=== PATIENT | female | born 1980 | race Caucasian/White ===

== ENCOUNTER 2017-04-28 10:00 | Inpatient (IN) ==
[2017-04-28] MEDS ORDERED: Ondansetron 4 MG/2 ML VIAL IVP PRN (10:56)
[2017-04-28] MEDS ORDERED: Famotidine 20 MG/2 ML VIAL IVP PRN (10:56)
[2017-04-28] MEDS ORDERED: *HR* Nalbuphine 20 MG/ML AMPUL IVP PRN (10:56)
[2017-04-28] MEDS ORDERED: Naloxone 0.4 MG/ML INJ IVP PRN (10:56)
[2017-04-28] MEDS ORDERED: miSOPROStol 25 MCG TABLET VG PRN (10:59)
[2017-04-28] MEDS: Ringers Solution, Lactated 1,000 ML IVC SCH ×3 (11:38→18:57)
--- NOTE | 2017-04-28 11:46 | OB/GYN History & Physical ---
Date of Encounter: 04/28/17 Time of Encounter: 11:40 Assessment and Plan (1) and not yet delivered in third trimester Current visit: Yes Status: Acute (2) 39 weeks gestation of Current visit: Yes Status: Acute Patient will be induced with a Tay catheter and Cytotec plan is to anticipate vaginal delivery (3) Advanced maternal age during in third trimester Current visit: Yes Status: Acute (4) Diet controlled gestational diabetes mellitus in third trimester Current visit: Yes Status: Acute (5) Grand multipara in labor in third trimester Current visit: Yes Status: Acute History of Present Illness HPI: Ms. Ferreira is a 36 year old female 6 para 5 at 39 and one sevenths weeks who presented for induction of labor secondary to term with favorable cervix. Patient course was complicated with being diagnosed as an A1 gestational diabetic has seen maternal medicine for this and for her advanced maternal age and has been getting NSTs. Clinically which have all been reassuring. It is recommended when she hit 39 weeks' to be induced. Patient is having no contractions good movement and no leaking of fluid. She was Rh+ rubella positive GBS negative Past Med Surg Social Fam HX - Past Medical History Medical history: no medical history, other (Gestational diabetes) Psychiatric history: no psych history - Past Surgical History Surgical History: no surgical history, other ([place] teeth extraction) - Social History Smoking Status: Unknown if ever smoked Smokeless Tobacco Status: No Alcohol use: none Drug use: none Occupational status: employed Current living situation: Home - Independent Activity Level: Independent ambulation Recent Out of Country Travel Within the Last 8 Weeks: No Exposure or Possible Exposure to Illness During Travel: No - Additional Family History Additional family history: Family history noncontributory Obstetrical History - Pregnancies : 6 Para: 5 Term: 5 : 0 Ab's: 0 Livin Medications and Allergies Vit Calc,Iron,Folic 04/28/17 [History] 3 Allergy/AdvReac Type Severity Reaction Status Date / Time No Known Allergies Allergy Verified 04/28/17 10:47 Review of System OB All systems PM: reviewed and no additional remarkable complaints except as stated Exam - Constitutional Constitutional: well developed, well nourished, no acute distress, average body habitus - HEENT HEENT: EOMI, PERRL, Mucus Membranes Moist - Neck Neck exam: full ROM - Lungs Respiratory exam: CTAB - Cardiovascular Cardiovascular exam: RRR - Abdomen Abdomen: Present: gravid - Cervix Dilation: 1 Effacement: 70 Station: -3 (A Tay catheter inserted 30 mL balloon inflated, heart tones 140s has some decreased variability at this time no contraction seen ) Results All other labs normal. - VTE Reasons for not Prescribing Prophylaxis: Treatment not Indicated - Low risk for VTE
[2017-04-28 11:52] LABS: Basophils % 0.3 %; Eosinophils % 0.6 %; Hematocrit 36.2 % (35.3-44.9); Hemoglobin 11.9 g/dL (11.5-15.4); Immature Granulocytes % 1.4 % (0-4); Lymphocytes # 0.9 K/mcL (0.6-4.6); Lymphocytes % 12.2 %; Mean Corpuscular HGB Conc 32.9 g/dL (31.6-35.5); Mean Corpuscular Hemoglobin 28.4 pg (28.0-33.3); Mean Corpuscular Volume 86.4 fL (83.0-100.0); Mean Platelet Volume 12.1 fL (9.4-12.4); Monocytes # 0.4 K/mcL (0.0-1.3); Monocytes % 5.9 %; Neutrophils # 5.7 K/mcL (1.6-8.9); Platelet Count 171 K/mcL (140-400); Red Blood Count 4.19 M/mcL (3.82-4.97); Red Cell Distribution Width 15.9 % (11.5-14.5); Segmented Neutrophils % 79.6 %
[2017-04-28 11:58] LABS: Amphetamine Screen,Urine Negative ng/mL (Cutoff=1000); Barbiturate Screen,Urine Negative ng/mL (Cutoff=200); Benzodiazepines Screen,Urine Negative ng/mL (Cutoff=200); Cannabinoid Screen,Urine Negative ng/mL (Cutoff = 50); Cocaine Screen,Urine Negative ng/mL (Cutoff= 300); Opiate Screen,Urine Negative ng/mL (Cutoff=300); Phencyclidine Screen,Urine Negative ng/mL (Cutoff=25)
[2017-04-28] MEDS ORDERED: Epidural Premix (fent/bupiv) 110 ML EP SCH (14:15)
[2017-04-28] MEDS ORDERED: Epidural Premix (fent/bupiv) 110 ML EP ONE (14:25)
--- NOTE | 2017-04-28 15:02 | Anesthesia Evaluation PreOp ---
Date of Encounter: 04/28/17 Time of Encounter: 14:40 - Past History Planned Operation: adrianne Cardiac History: Denies any Significant Hx Pulmonary History: Denies Any Significant HX OCEAN EXPORT AGENT History: Denies Any Significant HX Other Medical History: Denies Any Significant HX Anesthesia History: No Prior Anesthetic Complications : Yes Test: Positive Alcohol Use: none Drug use: none Medications and Allergies Vit Calc,Iron,Folic 04/28/17 [History] 3 Allergy/AdvReac Type Severity Reaction Status Date / Time No Known Allergies Allergy Verified 04/28/17 10:47 - Meds/Allergy Pre-op Review Medications Reviewed: Yes Allergies Reviewed: Yes Beta Blockers on Current Med List: No Anesthesia Results - Labs 04/28/17 10:58 04/28/17 11:47 Anesthesia Exam - HEENT Pupil (Motor): Pupils equal Mallampati: I Teeth: Normal Oral Opening: Greater than 3 - OCEAN EXPORT AGENT LOC: Oriented OCEAN EXPORT AGENT Motor: Normal RUE, Normal LUE, Normal RLE, Normal LLE, Normal Face OCEAN EXPORT AGENT Sensory: Normal: RUE, LUE, RLE, LLE, Face - Cardiac Rhythm: Regular Murmur: None JVD: No Carotid Bruit: No - Pulmonary Breath Sounds: bilateral Clear Respiratory Effort: Symmetrical Anesthesia Assess/Plan ASA Score: 1 Modified Derek Scale for Level of Consciousness: Cooperative, oriented, and tranquil Anesthetic Plan: Regional Autologous Blood: No Monitoring Plan: Standard Monitors
--- NOTE | 2017-04-28 15:04 | Anesthesia Procedures ---
Date of Encounter: 04/28/17 Time of Encounter: 14:30 Procedures: Anesthesia - Epidural/Spinal Patient ID/Chart reviewed: Yes Patient examined: Yes OB Eval: Gestational age: 39 OB Eval: : 6 OB Eval: Hx Para: 5 OB Eval: Dilated at (cm): 3 OB Eval: Contractions: Non-stressed pattern Consent Obtained: Yes Supplemental Oxygen: None/Room Air Site Prep: Aseptic Technique, Sterile prep and drape, Povidone-Iodine 1% Patient position: upright Amount of Local Anesthetic used: 3 Touhy Needle Gauge: 18 Touhy Needle Depth (cm): 6 Catheter Depth at Skin (cm): 12 Test Dose (1.5% Lido + Epi): Volume given (mls): 3 Test Dose Result: Negative Infusion Rate (mls/hr): [address]: Tegaderm, Tape Interspace Used: L4-L5 Loss of Resistance (PATRICK): Yes Blood: No CSF: No Paresthesia: No
--- NOTE | 2017-04-28 16:10 | OB Labor Progress Note ---
Date of Encounter: 04/28/17 Time of Encounter: 16:08 Labor Progress Note - Subjective Subjective: Patient resting comfortably with epidural in place. Discussed POC with patient. Patient denies any questions or concerns. - Cervix Cervix: 3.5/80/-1 - Heart Tones Heart Tones: 135 bpm moderate variability +15x15 accels no decels noted. CAt. 1 tracing. - [place]: 3-4 min apart - Interventions Interventions: SVE, AROM moderate amount of clear fluid noted. Patient tolerated well. - Plan Plan: Continue labor management Will augment with pitocin if needed.
[2017-04-28] MEDS ORDERED: Oxytocin 20 units/ LR 1000 mL 20 UNIT/1,000 ML BAG IVC SCH ×2 (17:15→23:14)
--- NOTE | 2017-04-28 17:36 | OB Labor Progress Note ---
Date of Encounter: 04/28/17 Time of Encounter: 17:20 Labor Progress Note - Subjective Subjective: Patient is still very comfortable - Cervix Cervix: 5-6/80/-1 - Heart Tones Heart Tones: heart tones 140s reactive - [place]: Contractions irregular every 3-5 minutes - Plan Plan: We will start Pitocin and anticipate vaginal delivery
--- NOTE | 2017-04-28 19:36 | OB Labor Progress Note ---
Date of Encounter: 04/28/17 Time of Encounter: 18:30 Labor Progress Note - Subjective Subjective: still comfortable - Cervix Cervix: 6/80/0 - Heart Tones Heart Tones: heart tones 140s reactive - [place]: Contractions every 2 minutes - Plan Plan: Anticipate normal spontaneous vaginal delivery
--- NOTE | 2017-04-28 19:42 | OB Labor Progress Note ---
Date of Encounter: 04/28/17 Time of Encounter: 19:35 Labor Progress Note - Subjective Subjective: Patient still comfortable we seeing signs of head droppage with early decelerations. - Cervix Cervix: 8/90/+1 - Heart Tones Heart Tones: heart tones 140s reactive having early decelerations and occasional variable decelerations - [place]: Contractions every 2 minutes - Plan Plan: Anticipate normal spontaneous vaginal delivery
--- NOTE | 2017-04-28 20:37 | OB/GYN Procedure Note ---
Delivery - Delivery Date: 04/28/17 Provider: Chriss Sexton Intrapartum events: none Delivery induction: cui, misoprostol Delivery augmentation: rupture of membranes, pitocin Delivery monitor: external FHT, external uterine Anesthesia: epidural Estimated Blood Loss: 100 - (s) A Infant Delivery Date: 04/28/17 Infant Delivery Time: 20:17 Presentation: vertex Position: NOLBERTO Route of delivery: Gender: Female Viability: Viable Pounds: 6 Ounces: 13 Weight Gram: 3.1 kg at 1 minute: 8 at 5 mins: 9 Shoulder Dystocia: not encountered Specimens collected: cord blood Placenta: spontaneous Cord: nuchal cord, 3 umbilical vessels, nuchal reduced - Repair Episiotomy: none Laceration Description: None - Complications Delivery complications: none Delivery comments: Patient is a 36-year-old 6 para 5 at 39-1/7 weeks who presented for induction of labor secondary to term with favorable cervix. Patient is an A1 gestational diabetic with normal blood sugars and has had normal NSTs it was recommended due to her advanced maternal age and gestational diabetes she would be delivered in the 39 week range she is a grand multiparous and goes quickly. She was brought to labor and delivery for a catheter was placed along with Cytotec vaginally patient's catheter fell out approximately 2 hours later she was artificially ruptured with clear fluid patient progressed appropriately but contractions spaced out after epidural she did require some augmentation with Pitocin once contractions were every 2 minutes patient made rapid change within 2 hours patient went from 5 cm to complete she pushed one time delivering a viable female infant in left occiput anterior presentation at 2017. There was a nuchal cord 1 loose and reduced, there was no meconium, infant was bulb suctioned on the abdomen. Apgars were 8 at 1 minute, 9 at 5 minute, weight was 6 lbs. 13 oz. Placenta was then delivered spontaneously with a three-vessel cord, blind stitch machine operator Dr. Sexton, anesthesia epidural, estimated blood loss 100 mL. Perineum cervix and vagina was well visualized intact. Patient tolerated delivery well she will be observed 2 hours before being taken the floor. - Disposition Mom disposition: stable in LDR disposition: stable in LDR
[2017-04-28] MEDS ORDERED: Acetaminophen 325 MG TABLET PO PRN (23:14)
[2017-04-28] MEDS ORDERED: Measles/Mumps/Rubella Vacc 0.5 ML VIAL SQ PRN (23:14)
[2017-04-29 05:54] LABS: Basophils % 0.2 %; Eosinophils % 0.4 %; Hematocrit 31.4 % (35.3-44.9); Immature Granulocytes % 0.4 % (0-4); Lymphocytes # 0.9 K/mcL (0.6-4.6); Mean Corpuscular HGB Conc 32.8 g/dL (31.6-35.5); Mean Corpuscular Hemoglobin 28.5 pg (28.0-33.3); Mean Platelet Volume 12.2 fL (9.4-12.4); Monocytes # 0.5 K/mcL (0.0-1.3); Monocytes % 5.2 %; Neutrophils # 7.8 K/mcL (1.6-8.9); Platelet Count 156 K/mcL (140-400); Red Blood Count 3.61 M/mcL (3.82-4.97); Red Cell Distribution Width 15.9 % (11.5-14.5); Segmented Neutrophils % 83.8 %
[2017-04-29 05:56] LABS: Hemoglobin 10.3 g/dL (11.5-15.4)
--- NOTE | 2017-04-29 08:00 | OB/GYN Progress Note ---
Date of Encounter: 04/29/17 Time of Encounter: 07:59 - Assessment and Plan (1) Vaginal delivery Current Visit: Yes Status: Acute Stable PPD#1 Continue current management Discharge tomorrow. Subjective - Subjective Interval history: Pain well controlled, locia has decreased, , Patient reports: appetite normal, voiding normally, pain well controlled, ambulating normally [place]: doing well, nursing well Objective - Latest Vital Signs Latest vital signs: Vital Signs Temp Pulse Resp BP Pulse Ox 04/29/17 04:19 97.6 F 78 16 108/66 97 04/29/17 00:14 98.6 F 84 16 96/60 96 04/28/17 23:45 98.4 F 69 20 120/70 97 04/28/17 22:50 98.1 F 78 16 128/71 96 Intake and Output 04/28/17 04/28/17 04/29/17 15:59 23:59 07:59 Intake Total 1000 / 1000 1000 / 1000 0 / 0 Output Total 300 / 300 350 / 350 Balance 1000 / 1000 700 / 700 -350 / -350 Intake: IV Fluids 1000 / 1000 1000 / 1000 Lactated Ringers 1,000 ML @ 125 1000 / 1000 1000 / 1000 mls/hr IVC .Q8H ALEXYS Rx#: [id number] Oral 0 / 0 Output: Urine 300 / 300 350 / 350 Other: Weight 82 kg 79.243 kg - Exam Lungs: bilateral: normal Chest: Normal S1, Normal S2 Extremities: Present: normal Abdomen: Present: soft, gravid Uterus: Present: normal Uterus Position: At Umbilicus - Labs Labs: Laboratory Results - last 24 hr 04/28/17 04/28/17 04/28/17 10:58 11:23 11:47 WBC 7.2 RBC 4.19 Hgb 11.9 Hct 36.2 MCV 86.4 MCH 28.4 MCHC 32.9 RDW 15.9 H Plt Count 171 MPV 12.1 Immature Gran % 1.4 Seg Neutrophils % 79.6 Lymphocytes % 12.2 Monocytes % 5.9 Eosinophils % 0.6 Basophils % 0.3 Neutrophils # 5.7 Lymphocytes # 0.9 Monocytes # 0.4 Eosinophils # 0.0 Basophils # 0.0 Glucose 92 Urine Opiates Screen Negative Ur Barbiturates Screen Negative Ur Phencyclidine Scrn Negative Ur Amphetamines Screen Negative U Benzodiazepines Scrn Negative Urine Cocaine Screen Negative U Marijuana (THC) Screen Negative 04/29/17 05:16 WBC 9.3 RBC 3.61 L Hgb 10.3 L D Hct 31.4 L MCV 87.0 MCH 28.5 MCHC 32.8 RDW 15.9 H Plt Count 156 MPV 12.2 Immature Gran % 0.4 Seg Neutrophils % 83.8 Lymphocytes % 10.0 Monocytes % 5.2 Eosinophils % 0.4 Basophils % 0.2 Neutrophils # 7.8 Lymphocytes # 0.9 Monocytes # 0.5 Eosinophils # 0.0 Basophils # 0.0 Glucose Urine Opiates Screen Ur Barbiturates Screen Ur Phencyclidine Scrn Ur Amphetamines Screen U Benzodiazepines Scrn Urine Cocaine Screen U Marijuana (THC) Screen
[2017-04-29] MEDS: Prenatal Vit/FA 1 EACH TABLET PO SCH (09:11)
[2017-04-29] MEDS: Ibuprofen 600 MG TABLET PO PRN ×2 (09:11→19:37)
[2017-04-29] MEDS ORDERED: Lanolin 7 G OINT...G. TP PRN (19:38)
[2017-04-30] MEDS: Ibuprofen 600 MG TABLET PO PRN (06:37)
[2017-04-30 08:23] VITALS: BP 102/68
--- NOTE | 2017-04-30 08:24 | Discharge Summary ---
Date of Encounter: 04/30/17 Time of Encounter: 08:20 - Discharge Diagnosis (1) and not yet delivered in third trimester Priority: Secondary Status: Acute (2) 39 weeks gestation of Priority: Secondary Status: Acute (3) Advanced maternal age during in third trimester Priority: Secondary Status: Acute (4) Diet controlled gestational diabetes mellitus in third trimester Priority: Secondary Status: Acute (5) Grand multipara in labor in third trimester Priority: Secondary Status: Acute (6) Status post vaginal delivery Priority: Primary Status: Acute - Discharge Medications Prescriptions: Ibuprofen [Motrin] 600 mg PO Q6HR PRN #30 tablet PRN Reason: Cramping Home Medications: Vit Calc,Iron,Folic 04/28/17 [History] Ibuprofen [Motrin] 600 mg PO Q6HR PRN #30 tablet 04/30/17 [Rx] Allergies/Adverse Reactions: 3 Allergy/AdvReac Type Severity Reaction Status Date / Time No Known Allergies Allergy Verified 04/28/17 10:47 Data Procedures and tests throughout hospitalization: Laboratory Tests 04/28/17 04/28/17 04/28/17 10:58 11:23 11:47 WBC 7.2 RBC 4.19 Hgb 11.9 Hct 36.2 MCV 86.4 MCH 28.4 MCHC 32.9 RDW 15.9 H Plt Count 171 MPV 12.1 Immature Gran % 1.4 Seg Neutrophils % 79.6 Lymphocytes % 12.2 Monocytes % 5.9 Eosinophils % 0.6 Basophils % 0.3 Neutrophils # 5.7 Lymphocytes # 0.9 Monocytes # 0.4 Eosinophils # 0.0 Basophils # 0.0 Glucose 92 Urine Opiates Screen Negative Ur Barbiturates Screen Negative Ur Phencyclidine Scrn Negative Ur Amphetamines Screen Negative U Benzodiazepines Scrn Negative Urine Cocaine Screen Negative U Marijuana (THC) Screen Negative 04/29/17 05:16 WBC 9.3 RBC 3.61 L Hgb 10.3 L D Hct 31.4 L MCV 87.0 MCH 28.5 MCHC 32.8 RDW 15.9 H Plt Count 156 MPV 12.2 Immature Gran % 0.4 Seg Neutrophils % 83.8 Lymphocytes % 10.0 Monocytes % 5.2 Eosinophils % 0.4 Basophils % 0.2 Neutrophils # 7.8 Lymphocytes # 0.9 Monocytes # 0.5 Eosinophils # 0.0 Basophils # 0.0 Glucose Urine Opiates Screen Ur Barbiturates Screen Ur Phencyclidine Scrn Ur Amphetamines Screen U Benzodiazepines Scrn Urine Cocaine Screen U Marijuana (THC) Screen Date of admission: 04/28/17 10:02 Primary care physician: Kristi Parikh Consults: 04/28/17 23:14 Consult to Electrical Maintenance Engineer [CONS] Routine Comment: Vaginal delivery, consult needed Discharging clinician: Chriss Sexton Anticipated date of discharge: 04/30/17 - Patient Status Disposition: Home, Self-Care Condition: Good Functional capacity at discharge: independent ambulation Overall status at discharge: patient is progressing back to baseline - Discharge Instructions Follow Up With: Kristi Mancini MD [Primary Care Provider] - Chriss Sexton DO [Partnered Physician] - - Diet and Activity Activity: increase activity as tolerated Diet: advance to your usual diet Hospital Course Procedures: Status post vaginal delivery Reason for admission: induction of labor Delivery: Episiotomy: none Laceration: none Other procedures: none complications: none Discharge diagnosis: IUP at term delivered [place] baby: female Hospital course: Patient is a 36-year-old 6 para 6 who presented for induction of labor secondary to term with favorable cervix. She is advanced maternal age and was an A1 gestational diabetic patient's sugars have been well controlled. Patient was induced with a cui Catheter and Cytotec and she progressed appropriately delivering vaginally without any complications. Patient's hospital was unremarkable she was discharged home on hospital day #2 with a prescription for Motrin 600 mg 1 every 6 hours as needed for pain to follow-up in the office in 4 weeks. Patient's condition at time of discharge was stable. Time Attestation: Total time spent providing and/or coordinating discharge services: Exam - Constitutional Vitals: Temp Pulse Resp BP Pulse Ox 97.9 F 93 16 106/68 98 04/29/17 19:31 04/29/17 19:31 04/29/17 19:31 04/29/17 19:31 04/29/17 19:31 General appearance IM: A&O X 3 - Respiratory Respiratory exam: Present: CTAB - Cardiovascular Cardiovascular exam IM: Present: RRR - GI/Abdominal GI/Abdominal exam IM: normal bowel sounds - Uterus Position: At Umbilicus
[2017-04-30] MEDS: Prenatal Vit/FA 1 EACH TABLET PO SCH (10:34)
== END 2017-04-30 11:46 | disposition home or self-care (01) | DRG 775 ==
LOC: 1NENULAB 10:02 → 1NENUOBS 22:43
PROVIDERS: ADMIT Obstetrics & Gynecology; ATTEND Obstetrics & Gynecology